=== PATIENT | male | born 1950 | race Caucasian/White ===

== ENCOUNTER 2025-04-18 08:44 | Emergency (ER) | payer MEDICARE, BC, SELFPAY ==
[2025-04-18] VITALS (34 sets, daily range): BP systolic 108–180; BP diastolic 83–122; PULSE 63–89; RESP 0–35; TEMP 36.1; O2SAT 91–99
--- OUTSIDE RECORDS SUMMARY | 2025-04-18 08:48 | XMS_ITS | Clinical Summary ---
Author Organization [employer] [facility] Address [address] [place] [id number] Care Team Providers Care A P Supervisor Name Role Phone Unavailable Primary Care Provider Unavailabl e Allergies Active Allergy Reactions Criticality Noted Date Comments Clindamycin Rash 08/15/2015 Penicillins Sulfa (Sulfonamide Antibiotics) Hives,Itching 1 09/19/2007 Medications MULTIVITAMIN TAB take 1 tablet by oral route once daily with food 0 7 Active latanoprost (XALATAN) 0.005 % ophthalmic solution 1 Drop at bedtime. 2.5 mL 0 1 Active timolol maleate (TIMOPTIC) 0.5 % ophthalmic solution Pt takes 1 drop in each eye in the am 5 mL 0 1 Active lisinopriL (PRINIVIL; ZESTRIL) 20 mg tabletIndications:H ypertension, unspecified type Take 1 Tablet (20 mg) by mouth once daily. 90 Tablet 3 4 Active omeprazole (PRILOSEC) 20 mg Delayed-Release capsuleIndications: Gastroesophageal reflux disease without esophagitis Take 1 Capsule (20 mg) by mouth once daily before a meal. 90 Capsule 3 4 Active benzonatate (TESSALON) 200 mg capsuleIndications: Cough, unspecified type Take 1 Capsule (200 mg) by mouth 3 times daily if needed for Cough. 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 [address] [place] [address] VotelMatthew MD Chest Pain from Last 3 Months Immunizations Immunization Administration Dates Next Due Hepatitis A (Adult) 05/07/2009,04/02/2006 Influenza RIV4 (Age 18+ Year s) PRESERV FREE 05/07/2020,05/16/2019 Influenza, High-dose Inactivated 024,05/15/2019,05/05/2016,2014,06/14/2013 Influenza, High-dose Quadriv alent Inactivated 06/07/2023,06/15/2022,05/01/2021 Influenza, IIV3 (Age >=3 years) 07/03/20 13,05/25/2011,05/23/2010,2008,05/23/2008 Influenza, Inactivated IIV3 (Age 65+ Years) Preserv Free 05/11/2018,05/05/2017 Pneumococcal Poly,23-Valent (Pneumovax) 05/05/2017 Pneumococcal conj 13-Valent (Prevnar 13) 05/05/2016 Td (Age >=7 Years) 01/14/2006 Tdap 08/15/2015 Zoster (Shingrix-RZV, recombinant) 09/03/2019, Zoster (Zostavax-ZVL, live) 09/03/2014 Family History Medical History Relation Name Comments Diabetes Brother 4 Calos Asthma Brother 5 Kike Cancer Brother 6 Tima at age 69 from lung CA Cancer-colon Brother 6 Tima colon cancer ag e 66, also lung cancer 68 Seizures Daughter Keyur Diabetes Father Other Father alzheimers dise ase Hypertension Mother Stroke Mother Relation Name Status Comments Brother 1 (Age 69) lung CA Brother 2 Alive Brother 3 Alive Brother 4 Calos Brother 5 Kike Brother 6 Tima Daughter Keyur Father Mother Social History Tobacco Use Types Packs/Day Years Used Date Smoking Tobacco: Never Smokeless Tobacco: Never Tobacco Cessation:Counseling Given: Yes Alcohol Use Standard Drinks/Week Comments Yes 0 (1 standard drink = 0.6 oz pur e alcohol) seldom PHQ-2 Answer Date Recorded PHQ-2 TOTAL SCORE 0 07/18/2024 Social Connections Answer Date Recorded Do you often feel lonely or isolated from those around you? 0 07/18/2024 Financial Resource Strain Answer Date R ecorded Difficulty of Paying Living Expenses 3 07/18/2024 Difficulty of Paying Living Expenses Not on file 07/18/2024 Food Insecurity Answer Date Recorded Do you worry your food will run out before you are able to buy more? 1 07/18/2024 Transportation Needs Answer Date Record ed Does lack of transportation keep you from medica l appointments? 1 07/18/2024 Does lack of transportation keep you from work, meetings or getting things that you need? 1 07/18/2024 Housing Stability Answer Date Recorded What is your housing situation today? 1 07/18/2024 Utilities Answer Date Recorded Do you have trouble paying f or utilities (for example, heat, electricity, water, phone)? 1 07/18/2024 Sex and Gender Information Value Date Recorded Sex Assigned at Male 06/12/2021 6:19 AM CDT Legal Sex Male 6:20 AM [employer] Gender Identity Male 06/12/2021 6:19 AM CDT Sexual Orientation Straight 06/12/2021 6: 19 AM CDT Occupation Industry Job Start Date Job End Date Construction Not on file Not on file Not on file Obstetrics History Last Filed Vital Signs Vital Sign Reading Time Taken Comments Blood Pressure 145/89 07/19/2024 9:29 AM [employer] Pulse 78 07/19/2024 9:29 AM [employer] Temperature 36.5 C (97.7 F) 07/19/2024 9:24 AM [employer] Respiratory Rate 14 10/20/2022 12:1 0 PM CDT Oxygen Saturation 98% 07/19/2024 9:24 AM [employer] Inhaled Oxygen Concentration - - Weight 82.5 kg (181 lb 14.4 oz) 07/19/2024 9:24 AM [employer] Height 167.5 cm (5' 5.95) 07/19/2024 9:24 AM CS T Body Mass Index 29.41 07/19/2024 9:24 AM [employer] Plan of Treatment Health Maintenance Due Date Last Done Comments Hepatitis C screening for age 18-79 1968 RSV vaccine for adults or (1 - 1-dose 75+ series) 2024 COVID-19 vaccine series (2023- season) 2025 05/18/2024, 06/07/2023, 06/15/2022, Additional history exists Influenza Vaccine (#1) 2025 , 05/07/2020, 05/16/2019, Additional history exists BMI (ht and wt on same day) for age 18+ 07/19/2025 07/19/2024, 07/15/2023, 07/13/2022, Additional history exists Depression screening for age 12+ 07/19/2025 07/19/2024, 07/18/2024, 07/15/2023, Additional history exists Medicare Wellness for age 65+ 07/20/2025 07/19/2024, 07/15/2023, 07/13/2022, Additional history exists Tetanus booster 08/15/2025 08/15/2015, 01/14/2006 Lipids for age 45-75 07/19/2029 07/19/2024, 07/15/2023, 07/13/2022, Additional history exists Colonoscopy through age 75 10/20/202910/20, 10/20/2022, 10/20/2022, Additional history exists Pneumococcal series for age 50+ Completed 05/05/2017, 05/05/2016 Zoster (shingles) series for age 50+ Completed 09/03/2019, 05/23/2019, 09/03/2014 Hepatitis B series for 19+ Aged Out N o longer eligible based on patient's age to complete this topic Procedures Procedure Name Priority Date/Time Associated Diagnosis Comments LIPID PANEL W REFLEX MEASURED LDL Routine 07/19/2024 10:32 AM [employer] Hyperlipidemia, unspecified hyperlipidemia type COLONOSCOPY SCREENING Routine 10/20/2022 10:14 AM CDT History of colon polyps from Last 3 Months or Most Recently Relevant to Health Maintenance Results * (ABNORMAL) LIPID PANEL W REFLEX MEASURED LDL (07/19/2024 10:32 AM [employer]) CHOLESTEROL, TOTAL 182 <200 mg/dL [facility] HDL CHOLESTEROL 38(L) > OR = 40 mg/dL [facility] TRIGLYCERIDES 129 <150 mg/dL [facility] LDL-CHOLESTEROL 120(H) mg/dL (calc) [facility] Comment: Reference range: <100 Desirable range <100 mg/dL for primary prevention; <70 mg/dL for patients with CHD or diabetic patients with > or = 2 CHD risk factors. LDL-C is now calculated using the Fabian-Afua calculation, which is a validated novel method providing better accuracy than the Friedewald equation in the estimation of LDL-C. Fabian HOOK et al. EMY. 2013;310(19): 1288-9534 (http://education.MJH/faq/CZZ892) CHOL/HDLC RATIO 4.8 <5.0 (calc) [facility] NON HDL CHOLESTEROL 144(H) <130 mg/dL (calc) [facility] Comment: For patients with diabetes plus 1 major ASCVD risk factor, treating to a non-HDL-C goal of <100 mg/dL (LDL-C of <70 mg/dL) is considered a therapeutic option. Blood BLOOD SPECIMEN / Unknown 07/19/2024 10:32 AM [employer] 07/19/2024 10:32 AM [employer] us Matthew Wilkinson MD CHEMISTRY Final Re sult [facility] [address] [place] [address], [facility] [address] [place] [address] * COLONOSCOPY (10/20/2022 10:49 AM CDT) 10/20/2022 10:4 9 AM CDT Narrative Transcriptions Fabian Swann MD - 10/20/2022 11:57 AM CDT Patient Name: Macario Arroyo Procedure Date: 10/20/2022 Gender: Male Date of : 1950 Admit Type: Outpatient Procedure: Colonoscopy Proceduralist: Fabian Swann MD , Indy Espinal (Nurse), Molly Martin (Nurse) Referring MD: Matthew Wilkinson Indications/Pre-Op Diagnosis: High risk colon cancer surveillance:Personal history of adenoma less than 10 mm in size, Last colonoscopy: November 2017 Medications: Fentanyl 100 micrograms IV, Midazolam 3 mgIV, The level of sedation administered wasmoderate Procedure Description: The patient had risks, benefits and alternatives explained to andgave informed consent. The patient had a stable cardiopulmonary status and judged an adequate candidate for conscious sedation. The [id number] was passed through the anus and advanced to the cecum, identified by appendiceal orifice and ileocecal valve. Thecolonoscopy was performed without difficulty. The patient tolerated the procedure well. The quality of the bowel preparation was good. The ileocecal valve, appendiceal orifice, and rectum were photographed. Complications: No immediate complications. Estimated Blood Loss & Specimen: Estimated blood loss: none. Specimen collected - Yes and sent to Laboratory Findings: The perianal and digital rectal examinations were normal. A 1 mm polyp was found in the ascending colon. The polyp was sessile. The polyp was removed with a cold biopsy forceps. Resection and retrieval were complete. A 5 mm polyp was found in the recto-sigmoid colon at 15 cm. The polyp was semi-pedunculated. The polyp was removed with a cold snare. Resection and retrieval were complete. Multiple small and large-mouthed diverticula were found in thesigmoid colon. The exam was otherwise without abnormality. Impressions/Post-Op Diagnosis: - One 1 mm polyp in the ascending colon, removed with a cold biopsy forceps. Resected and retrieved. - One 5 mm polyp at the recto-sigmoid colon, removed with a coldsnare. Resected and retrieved. - Diverticulosis in the sigmoid colon. - The examination was otherwise normal. Recommendation: - Patient has a contact number available for emergencies. The signsand symptoms of potential delayed complications were discussed with the patient. Return to normal activities tomorrow. Written discharge instructions were provided to the patient. - Resume previous diet. - Continue present medications. - Await pathology results. - Repeat colonoscopy is recommended. The colonoscopy date will be determined after pathology results from today's exam become available for review. Moderate Sedation: A time out was performed before the procedure. Moderate (conscious) sedation was administered by the endoscopy nurse and supervised bythe endoscopist. The following parameters were monitored: oxygensaturation, heart rate, blood pressure, EKG, CO2, respiratory rate, adequacy of pulmonary ventilation and reponse to care. Please refer to the patient's medical record flowsheets and nursing notes for moderate sedation details. Total physician intraservice time was 17 minutes. Fabian Swann MD 10/20/2022 11:56:57 AM This report has been signed electronically. Note Initiated On: 10/20/2022 10:49 AM Procedure Code(s): --- Professional --- 79187, Colonoscopy, flexible; with removalof tumor(s), polyp(s), or other lesion(s) bysnare technique 89389, 59, Colonoscopy, flexible; withbiopsy, single or multiple Diagnosis Code(s): --- Professional --- Z86.010, Personal history of colonicpolyps D12.2, Benign neoplasm of ascending colon D12.7, Benign neoplasm of rectosigmoidjunction K57.30, Diverticulosis of large intestine without perforation or abscess withoutbleeding CPT copyright 2020 [employer]. All rights reserved. The codes documented in this report are preliminary and upon swabber reviewmay be revised to meet current compliance requirements. Scope In: 11:34:11 AM Scope Withdrawal Time 0 hours 11 minutes 32 seconds Scope Out: 11:48:28 AM Fabian Swann MD PROCEDURE ORD Final Res ult from Last 3 Months or Most Recently Relevant to Health Maintenance Insurance [place] BL[place] MR PB ONLY [place] HB ONLY MEDICARE PART B HB ONLY MEDICARE PART A HB ONLY WORKERS COMP WORKERS COMP
--- NOTE | 2025-04-18 09:11 | CRLHL7_ITS ---
For Patients: As a result of the Century Cures Act, medical imaging exams and procedure reports are released immediately into your electronic medical record. You may view this report before your referring provider. If you have questions, please contact your health care provider. INDICATION: Pulmonary embolism suspected. Left-sided chest pain, history of melanoma TECHNIQUE: CT chest PE was acquired with 95 cc Isovue 370 IV contrast. Coronal and MIP reconstructions were performed. COMPARISON: None. FINDINGS: Heart and vasculature: Contrast opacification of the pulmonary arterial tree is adequate. No sign of pulmonary embolism. Heart size is normal. Thoracic aorta and pulmonary artery are normal in caliber. Coronary artery calcifications in minimal atherosclerotic calcification of the thoracic aorta and great vessels. Lungs and pleura: No suspicious nodules or infiltrates. Mild dependent atelectasis no pleural effusions, pleural thickening, or pneumothorax. Lymph nodes/mediastinum: No mediastinal, hilar, or axillary adenopathy. Calcified left mediastinal lymph nodes consistent with prior granulomatous disease. Small hiatal hernia. Chest wall: Unremarkable. Upper abdomen: No acute findings. 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 Bones: No acute or suspicious osseous abnormality. IMPRESSION: No evidence of pulmonary embolism. No acute findings within the chest. Please note that all CT scans at this facility use dose modulation, iterative reconstruction, and/or weight-based dosing when appropriate to reduce radiation dose to as low as reasonably achievable. Dictated by Rona Gonzalez MD @ 04/18/2025 10:11:08 AM (Electronically Signed)
--- NOTE | 2025-04-18 09:15 | ED.GENADULT ---
HPI - General Adult General Chief complaint: Chest Pain Stated complaint: Chest pain Time Seen by Provider: 04/18/25 08:48 History of Present Illness HPI narrative: Patient is a 74 year white male who has got a history of hypertension, he has never had heart disease, for about a week he has had increasing chest pressure little bit of shortness of breath, with some pain kg radiating through to his back. Does not necessarily associated with heavy work but he does notice that the pain is coming on more regularly and he feels a heaviness and tightness in his chest. He is not diaphoretic with this not nauseated, but does get EKG occasionally short of breath. He has had no cold cough or flu. He has had no leg swelling or edema, no recent travel. He does not smoke he is nondiabetic. He worked in construction. No leg swelling or edema, no neurologic complaints. Related Data Home Medications ?Medication ?Instructions ?Recorded ?Confirmed atorvastatin PO HS 04/18/25 latanoprost 0.005 % eye drops drp ophthalmic (eye) 04/18/25 lisinopril 20 mg tablet 20 mg PO DAILY 04/18/25 04/18/25 omeprazole PO DAILY 04/18/25 timolol maleate 0.5 % eye drops drp ophthalmic (eye) 04/18/25 Allergies Allergy/AdvReac Type Severity Reaction Status Date / Time Penicillins Allergy Unknown Verified 04/18/25 09:50 Sulfa (Sulfonamide Allergy Unknown Verified 04/18/25 09:50 Antibiotics) Review of Systems Status of ROS: Reports: 6 or more systems reviewed and unremarkable except as noted in History and below PFSH PFSH Social History Non-prescribed substance use: denies use Exam Narrative: Exam Narrative: Objective: Patient's vital signs show elevated blood pressure 170/102 otherwise unremarkable Alert orient x3 no distress Patient is alert orient x3, noncyanotic, talks in even unlabored sentences HEENT is unremarkable Nodes chest is clear heart rhythm regular without heart murmur , abdomen benign soft nontender, extremities are no edema , neurologic nonfocal Skin periphery is warm and dry. Const: Vital Signs, click to edit/add: Vital Signs - 24 hr 04/18/25 08:52 04/18/25 08:53 04/18/25 08:53 Temperature 96.9 F L Pulse Rate 89 81 Pulse Rate [Pulse Oximeter] 84 Respiratory Rate 6 L 18 5 L Blood Pressure 170/102 H Blood Pressure [Ri ght Upper Arm] 170/102 H Pulse Oximetry 99 96 97 Oxygen Delivery Me od Room Air 04/18/25 09:00 04/18/25 09:03 04/18/25 09:11 Temperature Pulse Rate 81 80 Pulse Rate [Pulse Oximeter] Respiratory Rate 0 L 5 L Blood Pressure 163/112 H Blood Pressure [Ri ght Upper Arm] Pulse Oximetry 97 96 98 Oxygen Delivery Me thod 04/18/25 09:15 04/18/25 09:30 04/18/25 09:52 Temperature Pulse Rate 78 Pulse Rate [Pulse Oximeter] Respiratory Rate 20 4 L 11 L Blood Pressure 169/122 H Blood Pressure [Ri ght Upper Arm] Pulse Oximetry 96 Oxygen Delivery Me thod 04/18/25 09:53 04/18/25 09:54 04/18/25 09:55 Temperature Pulse Rate 78 77 75 Pulse Rate [Pulse Oximeter] Respiratory Rate 19 11 L 14 Blood Pressure 180/105 H Blood Pressure [Ri ght Upper Arm] Pulse Oximetry 96 97 97 Oxygen Delivery Me thod 04/18/25 10:00 04/18/25 10:15 04/18/25 10:23 Temperature Pulse Rate 72 73 70 Pulse Rate [Pulse Oximeter] Respiratory Rate 18 16 Blood Pressure 179/103 H Blood Pressure [Ri ght Upper Arm] Pulse Oximetry 96 93 98 Oxygen Delivery Me thod 04/18/25 10:30 04/18/25 10:33 04/18/25 10:38 Temperature Pulse Rate 68 86 79 Pulse Rate [Pulse Oximeter] Respiratory Rate 17 6 L Blood Pressure 134/100 H 131/86 Blood Pressure [Ri ght Upper Arm] Pulse Oximetry 96 94 97 Oxygen Delivery Me thod 04/18/25 10:39 04/18/25 10:43 04/18/25 10:45 Temperature Pulse Rate 79 69 76 Pulse Rate [Pulse Oximeter] Respiratory Rate 13 12 15 Blood Pressure 146/91 H Blood Pressure [Ri ght Upper Arm] Pulse Oximetry 95 94 96 Oxygen Delivery Me thod 04/18/25 10:49 04/18/25 10:53 04/18/25 10:58 Temperature Pulse Rate 74 76 72 Pulse Rate [Pulse Oximeter] Respiratory Rate 14 16 0 L Blood Pressure 135/113 H 124/83 133/85 Blood Pressure [Ri ght Upper Arm] Pulse Oximetry 95 94 94 Oxygen Delivery Ut thod 04/18/25 11:00 04/18/25 11:03 04/18/25 11:08 Temperature Pulse Rate 67 72 71 Pulse Rate [Pulse Oximeter] Respiratory Rate 8 L 17 13 Blood Pressure 124/94 H 134/87 Blood Pressure [Ri ght Upper Arm] Pulse Oximetry 95 94 93 [facility] 04[facility] 11:13 04/18/25 11:15 04/18/25 11:19 Temperature Pulse Rate 75 63 76 Pulse Rate [Pulse Oximeter] Respiratory Rate 12 13 5 L Blood Pressure 136/83 108/83 Blood Pressure [Ri ght Upper Arm] Pulse Oximetry 93 94 93 [facility] 04/18/25 11:23 04/18/25 11:28 04/18/25 11:30 Temperature Pulse Rate 66 79 77 Pulse Rate [Pulse Oximeter] Respiratory Rate 8 L 0 L 10 L Blood Pressure 119/85 120/84 Blood Pressure [Ri ght Upper Arm] Pulse Oximetry 93 95 91 [facility] 04/18/25 11:45 04/18/25 12:00 Temperature Pulse Rate Pulse Rate [Pulse Oximeter] Respiratory Rate 35 H 12 Blood Pressure Blood Pressure [Ri ght Upper Arm] Pulse Oximetry [facility] Vital Signs Vital signs: Initial Vital Signs Respiratory Effort Normal, Spontaneous, Non-Labored 04/18/25 08:45 Respiratory Depth Normal 04/18/25 08:45 Vital Signs Pulse Rate 89 04/18/25 08:52 Respiratory Rate 6 L 04/18/25 08:52 Blood Pressure 170/102 H 04/18/25 08:52 Pulse Oximetry 99 04/18/25 08:52 Temperature 96.9 F L 04/18/25 08:53 Pulse Rate 77 04/18/25 11:30 Respiratory Rate 12 04/18/25 12:00 Blood Pressure 120/84 04/18/25 11:28 Pulse Oximetry 91 04/18/25 11:30 Oxygen Delivery Method Room Air 04/18/25 08:53 Medications Administered Medications: Discontinued Medications Generic Name Dose Route Start Last Admin Trade Name Freq PRN Reason Stop Dose Admin Aspirin 324 mg 04/18/25 09:11 04/18/25 09:25 Aspirin 81 Mg Tab.Chew PO 04/18/25 09:12 324 mg ONCE ONE Administration Heparin Sodium (Porcine) 4,000 unit 04/18/25 09:13 04/18/25 10:25 Heparin 5,000 Unit/0.5 Ml Inj IVP 04/18/25 09:14 4,000 unit ONCE ONE Administration Sodium Chloride 500 mls @ 500 mls/hr 04/18/25 09:11 04/18/25 10:18 0.9 % Sodium Chloride 500 Ml IV 04/18/25 10:10 Infused .Q1H ONE Infusion Heparin Sodium/Dextrose 25,000 unit in 500 mls @ 0 mls/hr 04/18/25 09:15 04/18/25 10:21 Heparin IV 1,000 unit/hr .Q0M TONI 20 mls/hr Protocol Administration Per Protocol Nitroglycerin/Dextrose 25,000 mcg in 250 mls @ 3 mls/hr 04/18/25 09:14 04/18/25 11:38 Nitroglycerin/Dextrose IVPB 0 mcg/min .TITRATE PRN 0 mls/hr Protocol Infusion 5 MCG/MIN Medical Decision Making MDM Narrative Medical decision making narrative: [age] white male with hypertension with increasing chest tightness over the week with some shortness of breath, mild dizziness, some pain radiating through to his back. Rule out acute coronary syndrome, rule out PE. Patient gives a good history for unstable angina and crescendo angina. I think putting him on IV heparin IV nitroglycerin to control his blood pressure as well as pain give him oral aspirin, check electrolytes, troponin, and likely Cardiology referral. The patient has an EKG done today that shows normal sinus rhythm there is some artifact present but no obvious ST T wave changes. Likely will transfer for cardiology intervention. Disposition pending troponin and CT results. Lab Data Labs: Lab Results 04/18/25 04/18/25 Range/Units 09: 09:26 WBC 6.85 (4.50-11.00) K/uL RBC 4.51 (4.30-5.90) m/uL Hgb 14.0 (13.5-17.5) gm/dL Hct 40.8 (37.0-53.0) % MCV 91 (80-100) fL MCH 31 (26-34) pg MCHC 34 (32-36) gm/dL RDW Coeff of Lily 12.6 (11.5-15.5) % Plt Count 223 (140-440) K/uL Neut % (Auto) 62.7 (42.0-72.0) % Lymph % (Auto) 29.1 (20-44) % [place] % (Auto) 5.7 (0.0-11.0) % Eos % (Auto) 1.8 (0.0-7.0) % Baso % (Auto) 0.4 (0.0-3.0) % Neut # (Auto) 4.30 (1.7-7.0) K/uL Lymph # (Auto) 1.99 (0.90-2.90) K/uL [place] # (Auto) 0.40 (0.00-0.90) K/UL Eos # (Auto) 0.12 (0.00-0.50) K/uL Baso # (Auto) 0.03 (0.00-0.30) K/uL Abs Immat Gran (auto) 0.02 (0.00-0.30) K/uL Imm/Tot Granulo (auto) 0.3 % APTT 26 (23-33) Seconds Sodium 138 (135-149) mmol/L Potassium 3.9 (3.6-5.1) mmol/L Chloride 106 (96-114) mmol/L Carbon Dioxide 25 (20-32) mmol/L Anion Gap 7 (7-15) mEq/L BUN 18 (7-30) mg/dL Creatinine 0.8 (0.5-1.5) mg/dL Estimated GFR 92 ml/min Glucose 181 H (60-115) mg/dL Calcium 10.2 (8.4-10.6) mg/dL Total Bilirubin 0.5 (0.1-1.5) mg/dL Direct Bilirubin 0.1 (0.0-0.5) mg/dL AST 33 (12-35) U/L ALT 35 (4-50) U/L Alkaline Phosphatase 49 (40-150) U/L Troponin I < 0.01 (0.01-0.04) ng/mL NT-Pro-B Natriuret Pep 31 (See Note) pg/mL Total Protein 6.7 (6.0-8.3) g/dL Albumin 4.2 (3.3-5.0) g/dL POC Troponin I 0.00 L (0.01-0.04) ng/ml Discharge Plan Discharge Clinical Impression: Chest pain, Unstable angina Patient Disposition: Ramin Ahn Prescriptions: No Action latanoprost 0.005 % drops ophthalmic (eye) lisinopril 20 mg tablet 20 mg PO DAILY timolol maleate 0.5 % drops ophthalmic (eye) atorvastatin PO HS omeprazole PO DAILY Stand Alone Forms: [employer] Info Instructions
[2025-04-18] MEDS: ASPIRIN 81 MG TAB.CHEW 324 MG PO (09:25)
[2025-04-18] MEDS: 0.9 % SODIUM CHLORIDE 500 ML 500 ML IV (09:25)
[2025-04-18 09:51] LABS: Troponin, Point-of-Care* 0.00 ng/ml (0.01-0.04)
[2025-04-18 09:52] LABS: Hematocrit* 40.8 % (37.0-53.0); Hemoglobin* 14.0 gm/dL (13.5-17.5); Immature Granulocytes Abs Auto 0.02 K/uL (0.00-0.30); Immature Granulocytes Pct Auto 0.3 %; Lymphocytes Absolute Auto 1.99 K/uL (0.90-2.90); Mean Corpuscular HGB Conc 34 gm/dL (32-36); Mean Corpuscular Hemoglobin 31 pg (26-34); Mean Corpuscular Volume 91 fL (80-100); RDW Coefficient of Variation % 12.6 % (11.5-15.5); Red Blood Count* 4.51 m/uL (4.30-5.90); White Blood Count* 6.85 K/uL (4.50-11.00)
[2025-04-18 09:54] LABS: Slide Review Reflex No
[2025-04-18 10:12] LABS: Albumin* 4.2 g/dL (3.3-5.0); Chloride* 106 mmol/L (96-114); Sodium* 138 mmol/L (135-149)
[2025-04-18 10:13] LABS: Potassium* 3.9 mmol/L (3.6-5.1)
[2025-04-18 10:15] LABS: Alanine Aminotransferase* 35 U/L (4-50); Alkaline Phosphatase* 49 U/L (40-150); Anion Gap 7 mEq/L (7-15); Aspartate Amino Transferase* 33 U/L (12-35); Bilirubin Direct* 0.1 mg/dL (0.0-0.5); Bilirubin Total* 0.5 mg/dL (0.1-1.5); Blood Urea Nitrogen* 18 mg/dL (7-30); Carbon Dioxide* 25 mmol/L (20-32); Creatinine* 0.8 mg/dL (0.5-1.5); Estimated Glomerular Filt Rate 92 ml/min; Total Protein* 6.7 g/dL (6.0-8.3)
[2025-04-18 10:16] LABS: Calcium* 10.2 mg/dL (8.4-10.6); Glucose* 181 mg/dL (60-115)
[2025-04-18] MEDS: HEPARIN 25,000 UNIT/500 ML BAG 20 UNIT IV (10:21)
[2025-04-18 10:25] LABS: NT Pro B Type NatriureticPept* 31 pg/mL (See Note)
[2025-04-18] MEDS: HEPARIN 5,000 UNIT/0.5 ML INJ 4000 UNIT IVP (10:25)
[2025-04-18] MEDS: NITROGLYCERIN/DEXTROSE 25,000 MCG/250 ML BOTTLE 3 MCG IVPB (10:27)
== END 2025-04-18 12:08 | disposition short-term general hospital (02) ==
PROVIDERS: Emergency Provider Family Medicine; PCP Family Medicine
DX: R07.9 Chest pain, unspecified (principal); I20.0 Unstable angina
CPT/HCPCS: 36415; 71275; 80048; 80076; 83880; 84484; 85025; 85730; 93005; 94761; 99285; A9270; J1644; J7030; Q9967

== ENCOUNTER 2025-04-18 11:51 | Outpatient (CLI) | payer MEDICARE, BC, SELFPAY | END 2025-04-18 11:52 | disposition home or self-care (01) | LOC: AMB 05-03 10:00 | PROVIDERS: PCP Family Medicine; Visit Provider Family Medicine | DX: R07.89 Other chest pain (principal) | CPT/HCPCS: A0425; A0434 ==